=== PATIENT | female | born 1995 | race Two or more races ===

== ENCOUNTER 2024-01-11 20:53 | Emergency (ER) | payer MEDICAID, OTHER ==
[~2024-01-11] VITALS: Ht 172.7 cm; Wt 106.0 kg
[2024-01-11 21:07] VITALS: BP 118/71; PULSE 84; RESP 20; TEMP 98.1; O2SAT 96
== END 2024-01-12 00:03 | disposition left against medical advice (07) ==
LOC: ER 20:53
DX: S29.012A Strain of muscle and tendon of back wall of thorax, initial encounter (principal); X50.0XXA Overexertion from strenuous movement or load, initial encounter; Y93.89 Activity, other specified; Y92.89 Other specified places as the place of occurrence of the external cause; Y99.8 Other external cause status